=== PATIENT | male | born 1995 | race African-American/Black ===

== ENCOUNTER 2019-02-18 21:09 | Emergency (ER) | payer SELFPAY ==
[~2019-02-18 21:09] MED LIST: PROPOFOL 200 MG/20 ML VIAL ONE
--- NOTE | 2019-02-18 21:52 | RAD ---
Chest 2 views HISTORY: Foreign body ingestion. FINDINGS: Cardiac silhouette and pulmonary vasculature are unremarkable. Lungs are slightly hyperinfl ated. No confluent airspace consolidation, pneumothorax, or pleural fluid evident. No evidence of mediastinal gas. Metallic nail projects over the gastric body. It measures up to 2.8 cm length. No evidence of free leigh bdiaphragmatic gas. IMPRESSION: Metallic nail overlies the gastric body. No active cardiopulmonary abnormalities are demonstrated.
[2019-02-18] MEDS ORDERED: Fentanyl 100 MCG/2 ML VIAL ONE (22:56)
--- NOTE | 2019-02-19 03:55 | OP ---
DATE OF PROCEDURE: 02/18/2019 PROCEDURE: Esophagogastroduodenoscopy with removal of foreign body. PREOPERATIVE DIAGNOSIS: Foreign body in the stomach. 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 DESCRIPTION OF PROCEDURE: Informed consent was obtained from the patient. He was sedated with total intravenous anesthesia. The bite block was placed and the endoscope was advanced easily to the second portion of the duodenum and retroflexion was performed in the stomach. The esophagus was normal. The GE junction was normal. There was a nail found in the body of the stomach. The stomach was otherwise normal. The pylorus and duodenum were normal. The nail was grasped with a polypectomy snare and pulled out through the patient's mouth. He tolerated the procedure well without immediate complications. IMPRESSION: A stainless steel nail was removed from the patient's stomach with polypectomy snare. RECOMMENDATIONS: He can be discharged home this evening. Job ID: [id number]
--- NOTE | 2019-02-19 07:32 | CON ---
DATE OF CONSULTATION: 02/18/2019 CHIEF COMPLAINT: Swallowed a nail. HISTORY OF PRESENT ILLNESS: Mr. 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 He accidentally swallowed one of the nails and came to the emergency room this evening. He has an about a 3 cm finishing nail as an example of one that he swallowed. He had an x-ray performed in the emergency room that showed that the nail was still in the stomach. He has no abdominal pain, nausea, vomiting, diarrhea, constipation, or blood in the stool. No chest pain or shortness of breath. He does feel like the nail scratched his throat a little bit as it went down and originally, he felt like it was still in his throat, but x-ray shows that has passed on down further. PAST MEDICAL HISTORY: Negative. PAST SURGICAL HISTORY: Negative. FAMILY HISTORY: Negative for GI malignancies. SOCIAL HISTORY: Has alcohol couple of times per month. No drugs or smoking. ALLERGIES: NO KNOWN DRUG ALLERGIES. MEDICATIONS: None. REVIEW OF SYSTEMS: Negative x10 systems reviewed, except as stated in history of present illness. PHYSICAL EXAMINATION: GENERAL: He is in no acute distress. Alert and oriented x3. HEENT: Eyes have no scleral icterus. Oropharynx is clear without lesions. No cervical or supraclavicular lymphadenopathy. LUNGS: Clear to auscultation bilaterally. HEART: Regular rate and rhythm without murmur. ABDOMEN: Soft, nontender, and nondistended. Bowel sounds are present. EXTREMITIES: No lower extremity edema. IMPRESSION: Foreign body in the stomach. That is a nail with a sharp and a flat head. It should be removed endoscopically, if possible. RECOMMENDATIONS: Proceed with EGD this evening urgently. Job ID: [id number]
== END 2019-02-18 23:10 | disposition admitted as inpatient to this hospital (09) ==
LOC: ERS 21:09
DX: T18.2XXA Foreign body in stomach, initial encounter (principal); J45.909 Unspecified asthma, uncomplicated
CPT/HCPCS: 71046; J2704; J3010